=== PATIENT | female | born 1975 | race Caucasian/White ===

== ENCOUNTER 2019-09-15 09:11 | Outpatient (CLI) | payer OTHER ==
--- NOTE | 2019-09-15 10:38 | ULT ---
ULTRASOUND ABDOMEN: HISTORY: Elevated LFTs FINDINGS: The spleen is enlarged measuring 18 cm. A single mobile shadowing gallstone is seen without gallbladd er wall thickening or pericholecystic fluid. The liver, pancreas, kidneys and visualized portions of the aorta and IVC appear normal. The common duct measures 5mm in diameter. No free fluid is seen. IMPRESSION: 1. Cholelithiasis 2. Splenomegaly
== END 2019-09-15 09:12 | disposition home or self-care (01) ==
LOC: BICULT 09:11
PROVIDERS: ATTEND Family Medicine
DX: R94.5 Abnormal results of liver function studies (principal); K80.20 Calculus of gallbladder without cholecystitis without obstruction; R16.1 Splenomegaly, not elsewhere classified
CPT/HCPCS: 93975